=== PATIENT | female | born 1970 | race Caucasian/White ===

== ENCOUNTER 2017-01-19 18:19 | Emergency (ER) | payer OTHER ==
[2017-01-19 18:29] VITALS: BMI 33.5
[2017-01-19 18:30] VITALS: RESP 18; TEMP 98.1
--- NOTE | 2017-01-19 19:21 | C.PDOC ---
History Of Present Illness 46 y/o female presents to ED with c/o left wrist pain and mild swelling for 5 days. 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 Notes history of tendinitis to the right hand. Denies trauma or injury. Time Seen by Provider: 01/19/17 18:37 Chief Complaint (Nursing): Upper Extremity Problem/Injury History Per: Patient History/Exam Limitations: no limitations Onset/Duration Of Symptoms: Days Current Symptoms Are (Timing): Still Present Quality: "Pain" Exacerbating Factor(s): Movement Recent travel outside of the [place]: No Past Medical History Reviewed: Historical Data, Nursing Documentation, Vital Signs Vital Signs: Last Vital Signs Temp 98.1 F 01/19/17 18:29 Pulse 81 01/19/17 19:30 Resp 18 01/19/17 19:30 BP 142/78 01/19/17 19:30 Pulse Ox 98 01/19/17 19:30 - Medical History PMH: HTN, Hypercholesterolemia, Hyperthyroidism, Hypothyroidism Family History: States: Unknown Family Hx - Social History Hx Tobacco Use: No Hx Alcohol Use: No Hx Substance Use: No - Immunization History Hx Tetanus Toxoid Vaccination: No Hx Influenza Vaccination: Yes Hx Pneumococcal Vaccination: No Review Of Systems Except As Marked, All Systems Reviewed And Found Negative. Constitutional: Negative for: Fever, Chills Musculoskeletal: Positive for: Hand Pain (left hand and wrist) Skin: Negative for: Rash Neurological: Negative for: Weakness, Numbness Physical Exam - Physical Exam Appears: Non-toxic, No Acute Distress Skin: Normal Color, Warm, Dry Head: Atraumatic, Normacephalic Extremity: Normal ROM, Tenderness (volar left wrist), Capillary Refill (< 2 sec. ), No Deformity, No Swelling Extremity: Bilateral: Normal Color And Temperature Pulses: Left Radial: Normal, Right Radial: Normal Neurological/Psych: Oriented x3, Normal Motor, Normal Sensation ED Course And Treatment O2 Sat by Pulse Oximetry: 100 (RA) Pulse Ox Interpretation: Normal - Other Rad Left Wrist XR X-Ray: Interpreted by Me, Viewed By Me Interpretation: negative Progress Note: Left wrist x-rays ordered and reviewed; negative for acute bony abnormality. Velcro wrist splint applied to left wrist by RN. On re-eval, pt resting comfortably, in no acute distress. Advised follow up with ortho/PMD. Disposition - Disposition Referrals: Dawna Hudson [Staff Provider] - Disposition: HOME/ ROUTINE Disposition Time: 19:21 Condition: GOOD Additional Instructions: Follow up with the medical doctor/clinic within 1-2 days. Return if worsened. 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 - Scribe Statement The provider has reviewed the documentation as recorded by the Scribe SM All medical record entries made by the Scribe were at my direction and personally dictated by me. I have reviewed the chart and agree that the record accurately reflects my personal performance of the history, physical exam, medical decision making, and the department course for this patient. I have also personally directed, reviewed, and agree with the discharge instructions and disposition.
[2017-01-19 19:35] VITALS: BP 142/78; PULSE 81
[2017-01-19 19:49] VITALS: O2SAT 100
--- NOTE | 2017-01-20 10:46 | RAD ---
PROCEDURE: Left Wrist Radiographs. HISTORY: wrist pain COMPARISON: None available. FINDINGS: BONES: No acute displaced fracture. JOINTS: No dislocation. SOFT TISSUES: Mild soft tissue swelling. No evidence of radiopaque foreign body OTHER FINDINGS: None. IMPRESSION: Mild soft tissue swelling. No acute displaced fracture, dislocation, or significant joint effusion identified. If symptoms persist, or if there is continued clinical concern, x-ray follow-up in 7-10 days should be considered.
== END 2017-01-19 19:31 | disposition home or self-care (01) ==
LOC: C.ER 18:19
DX: M77.9 Enthesopathy, unspecified (principal); E03.9 Hypothyroidism, unspecified; E78.00 Pure hypercholesterolemia, unspecified; I10 Essential (primary) hypertension

== ENCOUNTER 2017-02-08 00:14 | Emergency (ER) | payer OTHER ==
[2017-02-08 00:14] VITALS: BMI 33.5
[2017-02-08 01:04] LABS: RBC URINE 6 /hpf (0-3); URINE BACTERIA RARE (<OCC); URINE BILIRUBIN NEGATIVE (NEGATIVE); URINE BLOOD 1+ (NEGATIVE); URINE COLOR Yellow (YELLOW); URINE GLUCOSE (UA) NORMAL (Normal); URINE KETONE NEGATIVE (NEGATIVE); URINE LEUKOCYTE ESTERASE NEG Leu/uL (Negative); URINE PROTEIN NEGATIVE (NEGATIVE); URINE UROBILINOGEN NORMAL mg/dL (0.2-1.0); WBC URINE 1 /hpf (0-5)
[2017-02-08 01:21] LABS: BASO % 0.6 % (0.0-2.0); EOS # 0.1 K/uL (0.0-0.7); EOS % 1.3 % (0.0-4.0); HEMATOCRIT 33.8 % (34.0-47.0); LYMPH # 1.7 K/uL (1.0-4.3); LYMPH % 26.2 % (20.0-40.0); MEAN CELL VOLUME 80.9 fL (81.0-99.0); MEAN CORPUSCULAR HEMOGLOBIN 25.4 pg (27.0-31.0); MEAN CORPUSCULAR HGB CONC 31.3 g/dL (33.0-37.0); MEAN PLATELET VOLUME 7.6 fL (7.2-11.7); MONO # 0.5 K/uL (0.0-0.8); MONO % 7.8 % (0.0-10.0); NRBC % 0.1 % (0.0-2.0); RED CELL DISTRIBUTION WIDTH 16.1 % (11.5-14.5); WHITE BLOOD COUNT 6.4 K/uL (4.8-10.8)
[2017-02-08 01:44] LABS: ALKALINE PHOSPHATASE 57 U/L (38-126); ALT/SGPT 44 U/L (9-52); AST/SGOT 20 U/L (14-36); BILIRUBIN,TOTAL 0.3 mg/dL (0.2-1.3); BLOOD UREA NITROGEN 19 mg/dL (7-17); CALCIUM 8.1 mg/dl (8.6-10.4); CARBON DIOXIDE 23 mmol/L (22-30); CHLORIDE 103 mmol/L (98-107); GFR AFRICAN-AMERICAN > 60; GLUCOSE,RANDOM 97 mg/dL (65-105); POTASSIUM 3.3 mmol/L (3.6-5.2); SODIUM 137 mmol/L (132-148); TOTAL PROTEIN 7.7 g/dL (6.3-8.3)
[2017-02-08] MEDS ORDERED: Potassium Chloride 20 mEq/15 ml LIQ UD PO STA (02:23)
[2017-02-08] MEDS ORDERED: Sodium Chloride 0.9% 500 ML IV STA (02:23)
--- NOTE | 2017-02-08 02:52 | C.PDOC ---
History Of Present Illness 46 y/o female c/o waking up with diffuse abdominal pain since yesterday. Patient notes today pain radiates to the right periumblical area and the right upper flank area associated with diarrhea. Patient denies vomiting, nausea, urinary symptoms, or recent travel. Time Seen by Provider: 02/08/17 00:44 Chief Complaint (Nursing): Abdominal Pain History Per: Patient History/Exam Limitations: no limitations Onset/Duration Of Symptoms: Days Current Symptoms Are (Timing): Still Present Severity: Mild Location Of Pain/Discomfort: Diffuse Quality Of Discomfort: "Pain" Recent travel outside of the [place]: No Additional History Per: Patient Past Medical History Reviewed: Historical Data, Nursing Documentation, Vital Signs Vital Signs: Last Vital Signs Temp 97.4 F L 02/08/17 03:14 Pulse 76 02/08/17 03:14 Resp 17 02/08/17 03:14 BP 135/78 02/08/17 03:14 Pulse Ox 100 02/08/17 05:45 - Medical History PMH: HTN, Hypercholesterolemia, Hyperthyroidism, Hypothyroidism Family History: States: Unknown Family Hx - Social History Hx Tobacco Use: No Hx Alcohol Use: No Hx Substance Use: No - Immunization History Hx Tetanus Toxoid Vaccination: No Hx Influenza Vaccination: Yes Hx Pneumococcal Vaccination: No Review Of Systems Except As Marked, All Systems Reviewed And Found Negative. Gastrointestinal: Positive for: Abdominal Pain, Diarrhea. Negative for: Nausea , Vomiting Genitourinary: Positive for: Other (Right flank pain). Negative for: Dysuria, Frequency, Incontinence, Hematuria Physical Exam - Physical Exam Appears: Non-toxic, No Acute Distress Skin: Warm, Dry Head: Atraumatic, Normacephalic Oral Mucosa: Moist Chest: Symmetrical Cardiovascular: Rhythm Regular, No Murmur Respiratory: Normal Breath Sounds, No Rales, No Rhonchi, No Wheezing Gastrointestinal/Abdominal: Soft, Tenderness (Tenderness to the mid abdomen, periumblical area and the right mid abdomen/right flank) Back: Normal Inspection, No CVA Tenderness Neurological/Psych: Oriented x3 ED Course And Treatment - Laboratory Results Result Diagrams: 02/08/17 01:17 02/08/17 01:17 O2 Sat by Pulse Oximetry: 100 (RA) Pulse Ox Interpretation: Normal Progress Note: Plans: CXR, Toradol, IV fluids, Blood labs, UA. Labs reviewed and symptoms improved, but the pain is still 7/10 especially in the back. CT Abd /pelvis was refused by the patient and she states that she prefers instructed to follow up with her PMD later today for further evaluation and pt understand to return if symptoms worsen. Disposition Counseled Patient/Family Regarding: Diagnosis, Need For Followup - Disposition Disposition: HOME/ ROUTINE Disposition Time: 02:49 Condition: STABLE Additional Instructions: Please follow up with PMD in morning Take motrin or tylenol for pain Clear liquid to soft diet Return to ER if worse Instructions: Gastroenteritis (ED) Forms: [employer] (Greenlandic) Print Language: VIETNAMESE - Clinical Impression Clinical Impression: Abdominal pain, Diarrhea - Scribe Statement The provider has reviewed the documentation as recorded by the Scribchad leach All medical record entries made by the Elizabethibchad were at my direction and personally dictated by me. I have reviewed the chart and agree that the record accurately reflects my personal performance of the history, physical exam, medical decision making, and the department course for this patient. I have also personally directed, reviewed, and agree with the discharge instructions and disposition.
[2017-02-08] MEDS ORDERED: Potassium Chloride 20 mEq ER Tab PO ONE (02:55)
[2017-02-08 03:17] VITALS: BP 135/78; PULSE 76; RESP 17; TEMP 97.4
[2017-02-08 05:44] VITALS: O2SAT 100
--- NOTE | 2017-02-08 08:48 | RAD ---
HISTORY: right upper chest pain, H/o thyroidectomy COMPARISON: No prior. TECHNIQUE: Chest PA and lateral FINDINGS: LUNGS: No active pulmonary disease. PLEURA: No significant pleural effusion identified. No pneumothorax apparent. CARDIOVASCULAR: Normal. OSSEOUS STRUCTURES: No significant abnormalities. VISUALIZED UPPER ABDOMEN: Normal. OTHER FINDINGS: None. IMPRESSION: No active disease.
== END 2017-02-08 03:17 | disposition home or self-care (01) ==
LOC: C.ER 00:14
DX: R10.84 Generalized abdominal pain (principal); R19.7 Diarrhea, unspecified; E87.6 Hypokalemia
CPT/HCPCS: 71020; 80053; 81001; 83690; 84703; 85025; 96374; 99284; J1885

== ENCOUNTER 2017-05-30 21:58 | Emergency (ER) | payer OTHER ==
[2017-05-30 21:59] VITALS: BMI 33.5
[2017-05-30 22:08] VITALS: RESP 18; TEMP 97.9; O2SAT 99
--- NOTE | 2017-05-30 23:02 | C.PDOC ---
History Of Present Illness 46 y/o female presents to the ER complaining of occasional hand tremors. Patient with PMHx of thyroid cancer s/p thyroidectomy, and left-sided bells palsy. Reports that in 03/2014 she was on synthroid 225 mcg per day. One week ago patient presented to her PMD, noted to have low TSH and high T4, and her synthroid was decreased from 225 to 200. She denies any palpitations, weakness, numbness, or other complaints. Time Seen by Provider: 05/30/17 22:25 Chief Complaint (Nursing): Weakness/Neurological Deficit History Per: Patient History/Exam Limitations: no limitations Onset/Duration Of Symptoms: Intermittent Episodes Current Symptoms Are (Timing): Still Present Past Medical History Reviewed: Historical Data, Nursing Documentation, Vital Signs Vital Signs: Last Vital Signs Temp 97.9 F 05/30/17 22:04 Pulse 82 05/30/17 22:04 Resp 18 05/30/17 22:04 BP 142/93 H 05/30/17 22:04 Pulse Ox 99 05/30/17 23:03 - Medical History PMH: HTN, Hypercholesterolemia, Hyperthyroidism, Hypothyroidism, Kidney Stones, Malignancy (thyroid CA) Other Surgeries: Thyroidectomy Family History: States: Unknown Family Hx - Social History Hx Tobacco Use: No Hx Alcohol Use: No Hx Substance Use: No - Immunization History Hx Tetanus Toxoid Vaccination: No Hx Influenza Vaccination: Yes Hx Pneumococcal Vaccination: No Review Of Systems Except As Marked, All Systems Reviewed And Found Negative. Cardiovascular: Negative for: Palpitations Respiratory: Negative for: Shortness of Breath Gastrointestinal: Negative for: Nausea, Vomiting Neurological: Positive for: Other (hand tremors, intermittent). Negative for: Weakness, Numbness Physical Exam - Physical Exam Appears: No Acute Distress, Other (Anxious appearing) Skin: Normal Color, Warm, Dry Head: Atraumatic, Normacephalic Eye(s): bilateral: Normal Inspection, PERRL, EOMI Nose: Normal Oral Mucosa: Moist Neck: Normal ROM, Trachea Midline, Supple Chest: Symmetrical Cardiovascular: Rhythm Regular, No Murmur Respiratory: Normal Breath Sounds, No Accessory Muscle Use Gastrointestinal/Abdominal: Soft, No Tenderness, No Distention Extremity: Normal ROM, No Tenderness, No Deformity, Other (Minor occasional tremor noted) Neurological/Psych: Oriented x3, Normal Speech, Normal Motor, Normal Sensation, No Other (facial droop) Gait: Steady ED Course And Treatment O2 Sat by Pulse Oximetry: 99 (RA) Pulse Ox Interpretation: Normal Medical Decision Making Medical Decision Making: minor occasional tremors of hands. now resolved DATA REPORTING ANALYST. pt anxious. TSH low and elev T4 8 days ago (labs on paper presented) and pt has lowered Thyroxine from 225 mcg/day to 200 mcg/day x 7 days. Offered to recheck labs but pt deferred with informed consent and will d/w PMD in AM. Explained s/s prob related to hyperthyroidism and to d/w PMD to lower thyroxine appropriately. NO s/s of neurological deficit. 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 Instructions: Hyperthyroidism (Overactive Thyroid), Tremor Forms: [employer] (Italian) Print Language: SYRIAN - POA Present On Arrival: None - Clinical Impression Clinical Impression: H/O hyperthyroidism, Tremor - Scribe Statement The provider has reviewed the documentation as recorded by the Scribe (Pili Pérez) Provider Attestation: All medical record entries made by the Scribe were at my direction and personally dictated by me. I have reviewed the chart and agree that the record accurately reflects my personal performance of the history, physical exam, medical decision making, and the department course for this patient. I have also personally directed, reviewed, and agree with the discharge instructions and disposition.
[2017-05-31 02:33] VITALS: BP 132/83; PULSE 80
== END 2017-05-31 01:45 | disposition home or self-care (01) ==
LOC: SUPCPDRO 21:58 → C.ER 21:58
DX: E05.90 Thyrotoxicosis, unspecified without thyrotoxic crisis or storm (principal); R25.1 Tremor, unspecified; E78.00 Pure hypercholesterolemia, unspecified; I10 Essential (primary) hypertension; Z85.850 Personal history of malignant neoplasm of thyroid; G51.0 Bell's palsy

== ENCOUNTER 2018-02-12 12:46 | Emergency (ER) | payer OTHER ==
[2018-02-12 12:46] VITALS: BMI 33.5
[2018-02-12 14:02] LABS: SQUAMOUS EPITHIAL 1 /hpf (0-5); URINE BACTERIA OCC (<OCC); URINE BILIRUBIN NEGATIVE (NEGATIVE); URINE BLOOD 3+ (NEGATIVE); URINE CLARITY Hazy (Clear); URINE COLOR Yellow (YELLOW); URINE GLUCOSE (UA) NORMAL (Normal); URINE LEUKOCYTE ESTERASE 3+ Leu/uL (Negative); URINE PROTEIN 2+ mg/dL (NEGATIVE); URINE UROBILINOGEN NORMAL mg/dL (0.2-1.0); WBC CLUMPS MANY /hpf
--- NOTE | 2018-02-12 14:27 | C.PDOC ---
History Of Present Illness 47 y/o female, with history of diabetes and hypertension comes in to ED complaining of several days of urinary frequency and urgency, and left flank pain that radiates down to LLQ. Patient denies any nausea, vomiting, diarrhea, or fever. Time Seen by Provider: 02/12/18 13:08 Chief Complaint (Nursing): Female Genitourinary History Per: Patient History/Exam Limitations: no limitations Onset/Duration Of Symptoms: Days Current Symptoms Are (Timing): Still Present Past Medical History Reviewed: Historical Data, Nursing Documentation, Vital Signs Vital Signs: Last Vital Signs Temp 98.6 F 02/12/18 12:56 Pulse 73 02/12/18 12:56 Resp 18 02/12/18 12:56 BP 110/76 02/12/18 12:56 Pulse Ox 100 02/12/18 12:56 - Medical History PMH: HTN, Hypercholesterolemia, Hyperthyroidism, Hypothyroidism, Kidney Stones, Malignancy (thyroid CA), Chronic Kidney Disease Family History: States: No Known Family Hx - Social History Hx Tobacco Use: No Hx Alcohol Use: Yes Hx Substance Use: No - Immunization History Hx Tetanus Toxoid Vaccination: No Hx Influenza Vaccination: Yes Hx Pneumococcal Vaccination: No Review Of Systems Constitutional: Negative for: Fever Gastrointestinal: Positive for: Abdominal Pain (Left flank). Negative for: Nausea, Vomiting, Diarrhea Genitourinary: Positive for: Frequency Physical Exam - Physical Exam Appears: Non-toxic, No Acute Distress Skin: Warm, Dry, No Rash Head: Atraumatic, Normacephalic Eye(s): bilateral: Normal Inspection Oral Mucosa: Moist Neck: Supple Chest: Symmetrical Cardiovascular: Rhythm Regular, No Murmur Respiratory: Normal Breath Sounds, No Rales, No Rhonchi, No Wheezing, Other (Clear to auscultation bilaterally) Gastrointestinal/Abdominal: Bowel Sounds (Normal), Soft, Tenderness (to LLQ), No Guarding, No Rebound Back: CVA Tenderness (Left) Neurological/Psych: Oriented x3, Normal Speech, Normal Cognition ED Course And Treatment - Laboratory Results Result Diagrams: 02/12/18 14:28 02/12/18 14:28 O2 Sat by Pulse Oximetry: 100 (RA) Pulse Ox Interpretation: Normal - CT Scan/US CT Abd/Pel Other Rad Studies (CT/US): Read By Radiologist, Radiology Report Reviewed CT/US Interpretation: FINDINGS: LOWER THORAX: Unremarkable. LIVER: Unremarkable. No gross lesion or ductal dilatation. GALLBLADDER AND BILE DUCTS: Unremarkable. PANCREAS: Unremarkable. No gross lesion or ductal dilatation. SPLEEN: Unremarkable. ADRENALS: Unremarkable. No mass. KIDNEYS AND URETERS: Unremarkable. No hydronephrosis. No solid mass. No renal or ureteral calculus. VASCULATURE: Unremarkable. No aortic aneurysm. No aortic atherosclerotic calcification or mural plaque present. BOWEL: Mild sigmoid diverticulosis without evidence of diverticulitis. No bowel obstruction. No other abnormal bowel loops. APPENDIX: Unremarkable. Normal appendix. PERITONEUM: Unremarkable. No free fluid. No free air. LYMPH NODES: Unremarkable. No enlarged lymph nodes. BLADDER: Nondistended. REPRODUCTIVE: Unremarkable uterus. BONES: No acute fracture. OTHER FINDINGS: None. IMPRESSION: No evidence of urinary calculus or urinary tract obstruction. Mild sigmoid diverticulosis. No other significant abnormality. Medical Decision Making Medical Decision Making: Plan: --CT Abd/Pel --Bloodwork --Toradol --Urinalysis pt with no kidney stone on ct exam. no hydronephrosis. mild diverticulosis noted. pt with resolved pain at this time, abdomen soft, nd, nt. will d/c home with antibiotics for uti. 02/14 2306 microbiology results reviewed; sensitive to cipro, pt was discharged with cipro, no change in treatment needed. Disposition Counseled Patient/Family Regarding: Studies Performed, Diagnosis, Need For Followup, Rx Given - Disposition Referrals: Dawna Hudson [Staff Provider] - Disposition: HOME/ ROUTINE Disposition Time: 18:12 Condition: IMPROVED Additional Instructions: Beber lquidos en aumento. [place] los medicamentos segn lo prescrito. Seguimiento con el Dr. Hudson el . [place] Tylenol o Motrin para el dolor. Lleve stevie copia de los resultados de la prueba de orina y la tomografa computarizada al Dr. Hudson. Regrese a la donal de emergencias por sntomas peores, fiebre, dolor peor, vmitos Drink increased fluids. Take medications as prescribed. Follow up with Dr Hudson on Wednesday. Take Tylenol or Motrin for pain. Bring copy of urine test and ct scan results to Dr Hudson. Return to ER for any worse symptoms, fever, worse pain, vomiting . 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 - Scribe Statement The provider has reviewed the documentation as recorded by the Scribe Maria Ines Parks All medical record entries made by the Dariela were at my direction and p ersonally dictated by me. I have reviewed the chart and agree that the record accurately reflects my personal performance of the history, physical exam, medical decision making, and the department course for this patient. I have also personally directed, reviewed, and agree with the discharge instructions and disposition.
[2018-02-12 14:32] LABS: BASO # 0.1 K/uL (0.0-0.2); BASO % 0.5 % (0.0-2.0); EOS # 0.1 K/uL (0.0-0.7); EOS % 0.7 % (0.0-4.0); HEMOGLOBIN 12.2 g/dL (11.0-16.0); LYMPH # 1.8 K/uL (1.0-4.3); LYMPH % 15.4 % (20.0-40.0); MEAN CELL VOLUME 82.8 fL (81.0-99.0); MEAN CORPUSCULAR HEMOGLOBIN 26.4 pg (27.0-31.0); MEAN CORPUSCULAR HGB CONC 31.9 g/dL (33.0-37.0); MONO # 0.6 K/uL (0.0-0.8); MONO % 5.1 % (0.0-10.0); NEUT # 9.3 K/uL (1.8-7.0); NEUT % 78.3 % (50.0-75.0); RBC 4.63 Mil/uL (3.80-5.20); RED CELL DISTRIBUTION WIDTH 16.8 % (11.5-14.5); WHITE BLOOD COUNT 11.9 K/uL (4.8-10.8)
[2018-02-12 14:47] LABS: ALB/GLOB RATIO 1.2 (1.0-2.1)
[2018-02-12 14:48] LABS: ALBUMIN 4.1 g/dL (3.5-5.0); ALT/SGPT 27 U/L (9-52); AST/SGOT 21 U/L (14-36); BLOOD UREA NITROGEN 14 mg/dL (7-17); CALCIUM 8.6 mg/dl (8.6-10.4); GFR NON-AFRICAN AMERICAN > 60
--- NOTE | 2018-02-12 15:54 | CT ---
Date of service: 02/12/2018 PROCEDURE: CT Abdomen and Pelvis without intravenous contrast HISTORY: left flank pain., hx kidney stones COMPARISON: None. TECHNIQUE: Without contrast.. Contrast dose: 0 Radiation dose: Total exam DLP = 589.74 mGy-cm. This CT exam was performed using one or more of the following dose reduction techniques: Automated exposure control, adjustment of the mA and/or kV according to patient size, and/or use of iterative reconstruction technique. FINDINGS: LOWER THORAX: Unremarkable. LIVER: Unremarkable. No gross lesion or ductal dilatation. GALLBLADDER AND BILE DUCTS: Unremarkable. PANCREAS: Unremarkable. No gross lesion or ductal dilatation. SPLEEN: Unremarkable. ADRENALS: Unremarkable. No mass. KIDNEYS AND URETERS: Unremarkable. No hydronephrosis. No solid mass. No renal or ureteral calculus. VASCULATURE: Unremarkable. No aortic aneurysm. No aortic atherosclerotic calcification or mural plaque present. BOWEL: Mild sigmoid diverticulosis without evidence of diverticulitis. No bowel obstruction. No other abnormal bowel loops. APPENDIX: Unremarkable. Normal appendix. PERITONEUM: Unremarkable. No free fluid. No free air. LYMPH NODES: Unremarkable. No enlarged lymph nodes. BLADDER: Nondistended REPRODUCTIVE: Unremarkable uterus BONES: No acute fracture. OTHER FINDINGS: None. IMPRESSION: No evidence of urinary calculus or urinary tract obstruction. Mild sigmoid diverticulosis. No other significant abnormality.
[2018-02-12] MEDS ORDERED: cefTRIAXone IV 1 gm in Dextros 50 ML IVPB STA (16:00)
[2018-02-12] MEDS ORDERED: Sodium Chloride 0.9% 1,000 ML IV ONE (16:01)
[2018-02-12] MEDS ORDERED: Sodium Chloride 0.9% 1,000 ML ONE (16:15)
[2018-02-12] MEDS ORDERED: cefTRIAXone 1 gm 1 GM/100 ML BAG IVPB ONE (16:15)
[2018-02-12 17:25] VITALS: RESP 18; O2SAT 100
[2018-02-12 17:56] VITALS: BP 100/70; PULSE 60; TEMP 98
== END 2018-02-12 18:22 | disposition home or self-care (01) ==
LOC: C.ER 12:46
DX: N39.0 Urinary tract infection, site not specified (principal)
CPT/HCPCS: 74176; 80053; 81001; 85025; 87086; 87181; 96365; 96375; 99285; J0696; J1885; J7030